=== PATIENT | female | born 1970 | race Caucasian/White ===

== ENCOUNTER 2024-12-22 13:47 | Inpatient (IN) ==
[2024-12-22] MEDS ORDERED: IOPAMIDOL 100 ML BOTTLE IV ONE (13:48)
[2024-12-22 14:35] LABS: Basophils # (Auto) 0.02 K/mcL (0.00-0.30); Basophils % (Auto) 0.2 % (0.0-2.0); Eosinophils # (Auto) 0.01 K/mcL (0.00-0.70); Eosinophils % (Auto) 0.1 % (0.0-7.0); Hematocrit 40.1 % (34.1-44.9); Hemoglobin 12.7 g/dL (11.2-15.7); Lymphocytes # (Auto) 1.05 K/mcL (1.50-4.80); Lymphocytes % (Auto) 8.8 % (15.5-49.0); Mean Cell Volume 89.9 fL (80.0-100.0); Mean Corpuscular HGB Conc 31.7 g/dL (31.0-36.0); Mean Platelet Volume 8.7 fL (8.8-12.5); Monocytes # (Auto) 0.84 K/mcL (0.10-0.90); Monocytes % (Auto) 7.1 % (1.0-12.0); Neutrophils % (Auto) 83.8 % (38.0-78.0); Platelet Count 224 K/mcL (140-440); RBC 4.46 M/mcL (3.59-5.38); WBC 11.9 K/mcL (4.5-11.0)
[2024-12-22 15:03] LABS: ALT/SGPT 27 U/L (<40); AST/SGOT 23 U/L (<32); Albumin 3.8 gm/dL (3.2-5.2); Albumin/Globulin Ratio 1.3 (1.0-2.3); Alkaline Phosphatase 90 U/L (39-117); Bilirubin,Total 0.9 mg/dL (0.1-1.0); Blood Urea Nitrogen 19 mg/dL (6-20); Calcium 9.7 mg/dL (8.6-10.4); Carbon Dioxide 20 mmol/L (22-30); Chloride 101 mmol/L (96-108); Globulin 2.9 gm/dL (2.2-3.7); Glomerular Filtration Rate 108; Glucose 177 mg/dL (70-105); Potassium 4.4 mmol/L (3.3-5.1); Sodium 135 mmol/L (133-145)
[2024-12-22] MEDS: 0.9 % SODIUM CHLORIDE 1,000 ML IV ONE (15:56)
[2024-12-22 16:12] LABS: Appearance,Urine Cloudy (Clear); Bacteria,Urine Few /hpf (0); Bilirubin,Urine Negative (Negative); Color,Urine Yellow; Glucose,Urine (UA) Negative (Negative); Ketones,Urine Negative (Negative); Leukocyte Esterase,Urine Small /uL (Negative); Mucus,Urine Few /hpf; Nitrate,Urine Negative (Negative); PH,Urine 5.5 (5.0-9.0); Protein,Urine 30 mg/dL (Negative); Specific Gravity,Urine 1.025 (1.000-1.035); Urine Blood Negative ery/mcL (Negative); Urine RBC 2 /hpf (0-3); Urine Squamous Epithelial Cell 2 /hpf (0-4); Urine WBC 45 /hpf (0-4); Urobilinogen,Urine Normal
[2024-12-22] MEDS: PIPERACILLIN SODIUM/TAZOBACTAM 4.5 GM in DEXTROSE 5% IN WATER 50 ML IV ONE (17:09)
[2024-12-22] MEDS: morphine 4 MG/ML VIAL IV ONE (20:12)
[2024-12-22] MEDS: ONDANSETRON 4 MG/2 ML VIAL IV ONE (20:12)
[2024-12-22] MEDS: ONDANSETRON 4 MG/2 ML VIAL IV PRN (22:24)
[2024-12-22] MEDS: HYDROmorphone 0.5 MG/0.5 ML SYRINGE IV PRN (22:24)
[2024-12-22] MEDS: DEXTROSE 5%-NS 1,000 ML IV SCH (22:27)
[2024-12-22] MEDS: PIPERACILLIN SODIUM/TAZOBACTAM 4.5 GM in DEXTROSE 5% IN WATER 100 ML IV SCH (23:00)
[2024-12-23 06:36] LABS: Hematocrit 37.8 % (34.1-44.9); Hemoglobin 11.8 g/dL (11.2-15.7); Mean Cell Volume 91.5 fL (80.0-100.0); Mean Corpuscular HGB Conc 31.2 g/dL (31.0-36.0); Mean Platelet Volume 8.8 fL (8.8-12.5); Platelet Count 206 K/mcL (140-440); RBC 4.13 M/mcL (3.59-5.38); Red Cell Distribution Width 15.5 % (11.5-14.5); WBC 11.4 K/mcL (4.5-11.0)
[2024-12-23 07:00] LABS: ALT/SGPT 26 U/L (<40); AST/SGOT 18 U/L (<32); Albumin 3.5 gm/dL (3.2-5.2); Albumin/Globulin Ratio 1.3 (1.0-2.3); Alkaline Phosphatase 77 U/L (39-117); Bilirubin,Total 1.5 mg/dL (0.1-1.0); Blood Urea Nitrogen 16 mg/dL (6-20); Calcium 9.3 mg/dL (8.6-10.4); Carbon Dioxide 22 mmol/L (22-30); Chloride 103 mmol/L (96-108); Globulin 2.8 gm/dL (2.2-3.7); Glomerular Filtration Rate 96; Glucose 163 mg/dL (70-105); Potassium 4.1 mmol/L (3.3-5.1); Sodium 137 mmol/L (133-145)
[2024-12-23] MEDS ORDERED: DEXAMETHASONE 10 MG/ML VIAL ONE (09:12)
[2024-12-23] MEDS ORDERED: ROCURONIUM 10 MG/ML ML IV ONE ×2 (09:12→11:03)
[2024-12-23] MEDS ORDERED: ONDANSETRON 4 MG/2 ML VIAL ONE (09:12)
[2024-12-23] MEDS ORDERED: LIDOCAINE 2% PF 5 ML VIAL ONE (09:12)
[2024-12-23] MEDS ORDERED: TRANEXAMIC ACID 1,000 MG/10 ML VIAL ONE (09:12)
[2024-12-23] MEDS ORDERED: PHENYLephrine 1 MG/10 ML SYRINGE (ANEST) ONE ×2 (09:12→11:19)
[2024-12-23] MEDS ORDERED: GLYCOPYRROLATE 0.2 MG/ML VIAL IV ONE (09:12)
[2024-12-23] MEDS ORDERED: METOCLOPRAMIDE 10 MG/2 ML VIAL ONE (09:13)
[2024-12-23] MEDS ORDERED: ePHEDrine 50 MG/5 ML SYRINGE (ANEST) IV ONE (09:13)
[2024-12-23] MEDS ORDERED: MIDAZOLAM 2 MG/2 ML VIAL ONE (09:15)
[2024-12-23] MEDS ORDERED: PROPOFOL 200 MG/20 ML VIAL IV ONE (09:15)
[2024-12-23] MEDS ORDERED: KETAMINE 50 MG/ML Syringe IV ONE (09:15)
[2024-12-23] MEDS: PIPERACILLIN SODIUM/TAZOBACTAM 4.5 GM in 0.9 % SODIUM CHLORIDE 100 ML IV SCH (09:31)
[2024-12-23] MEDS ORDERED: FAMOTIDINE/PF 20 MG/2 ML VIAL IV ONE (10:21)
[2024-12-23] MEDS ORDERED: SUGAMMADEX SODIUM 200 MG/2 ML VIAL IV ONE (10:52)
[2024-12-23] MEDS ORDERED: HYDROmorphone 0.5 MG/0.5 ML SYRINGE ONE (11:39)
[2024-12-23] MEDS ORDERED: MAGNESIUM SULFATE 2 GM/50 ML BAG IV ONE (12:19)
[2024-12-23] MEDS ORDERED: HYDROmorphone 0.5 MG/0.5 ML SYRINGE IV PRN (12:42)
[2024-12-23] MEDS ORDERED: ONDANSETRON 4 MG/2 ML VIAL IV PRN (12:42)
[2024-12-23] MEDS ORDERED: IPRATROPIUM/ALBUTEROL 3 ML AMPUL.NEB NEB PRN (12:42)
[2024-12-23] MEDS: LACTATED RINGERS 1,000 ML IV SCH (14:25)
[2024-12-23] MEDS: FLUCONAZOLE 400 MG/200 ML BAG IV SCH (15:02)
[2024-12-23] MEDS: METOCLOPRAMIDE 10 MG/2 ML VIAL IV PRN (19:37)
[2024-12-24 07:05] LABS: Hematocrit 31.4 % (34.1-44.9); Hemoglobin 9.8 g/dL (11.2-15.7); Mean Cell Volume 92.4 fL (80.0-100.0); Mean Corpuscular HGB Conc 31.2 g/dL (31.0-36.0); Platelet Count 150 K/mcL (140-440); Red Cell Distribution Width 15.2 % (11.5-14.5)
[2024-12-24 07:20] LABS: ALT/SGPT 152 U/L (<40); AST/SGOT 118 U/L (<32); Albumin/Globulin Ratio 1.1 (1.0-2.3); Alkaline Phosphatase 63 U/L (39-117); Bilirubin,Total 0.5 mg/dL (0.1-1.0); Blood Urea Nitrogen 11 mg/dL (6-20); Calcium 8.9 mg/dL (8.6-10.4); Carbon Dioxide 20 mmol/L (22-30); Chloride 107 mmol/L (96-108); Globulin 2.7 gm/dL (2.2-3.7); Glomerular Filtration Rate 101; Glucose 304 mg/dL (70-105); Potassium 4.2 mmol/L (3.3-5.1); Sodium 136 mmol/L (133-145)
[2024-12-24] MEDS: 0.9 % SODIUM CHLORIDE 1,000 ML IV SCH (11:03)
[2024-12-24] MEDS: HYDROcodone/APAP 5/325MG TABLET PO SCH (11:03)
[2024-12-24] MEDS: ATORVASTATIN 40 MG TABLET PO SCH (20:28)
[2024-12-25] MEDS: BISACODYL 5 MG TABLET PO SCH (08:21)
[2024-12-25] MEDS: FLUCONAZOLE 100 MG TABLET PO SCH (09:15)
[2024-12-26 06:19] LABS: Hematocrit 32.8 % (34.1-44.9); Hemoglobin 10.4 g/dL (11.2-15.7); Mean Cell Volume 89.9 fL (80.0-100.0); Mean Corpuscular HGB Conc 31.7 g/dL (31.0-36.0); Platelet Count 211 K/mcL (140-440); RBC 3.65 M/mcL (3.59-5.38); Red Cell Distribution Width 15.3 % (11.5-14.5); WBC 7.5 K/mcL (4.5-11.0)
[2024-12-26 06:38] LABS: Blood Urea Nitrogen 10 mg/dL (6-20); Calcium 8.8 mg/dL (8.6-10.4); Carbon Dioxide 22 mmol/L (22-30); Chloride 108 mmol/L (96-108); Glomerular Filtration Rate 116; Glucose 123 mg/dL (70-105); Potassium 3.2 mmol/L (3.3-5.1); Sodium 142 mmol/L (133-145)
[2024-12-26 11:45] VITALS: TEMP 98.2; O2SAT 98
== END 2024-12-26 12:26 | disposition home or self-care (01) | DRG 417 ==
LOC: MEDSUR 13:47 → ED 13:47 → MEDSUR 22:13
PROVIDERS: ADMIT Surgery Surgical Critical Care; ATTEND Surgery Surgical Critical Care